=== PATIENT | male | born 1995 | race Caucasian/White ===

== ENCOUNTER 2022-10-19 07:45 | Emergency (ER) | payer OTHER, SELFPAY ==
[2022-10-19 07:48] VITALS: BP 172/96; PULSE 88; RESP 16; TEMP 36.9; O2SAT 99
--- OUTSIDE RECORDS SUMMARY | 2022-10-19 07:56 | XMS_ITS | Patient Health Record ---
Author Name Unknown Organization [employer] [facility] Address [address] [place], [place] [id number] Care Team Providers Care Certified Composites Technician Name Role Phone ELVIN MATA Primary Care Provider [phone] ALLERGIES No Known Allergies RESULTS Component Value Reference Range Notes XR FOOT 3V LT* Reviewed date:04/02/2022 07:21:47 AM Interpretation: Performing Lab: Notes/Report: [facility] RADIOLOGY REASON FOR REFERRAL No Information IMMUNIZATIONS Vaccine Route Administration Date Status Comme nts Covid-19 Moderna Booster Unknown 03/02/2021 Administere d Covid-19 Moderna Dose 1 Unknown 03/31/2020 Administered Covid-19 Moderna Dose 2 Unknown 05/02/2020 Administered Hep B, adolescent or pediatr ic (11-19), 3 dose schedule Unknown 1993 Administered Hep B, adolescent or pediatr ic (11-19), 3 dose schedule Unknown 1993 Administered Hep B, adolescent or pediatr ic (11-19), 3 dose schedule Unknown 03/27/1994 Administered Hib (PRP-T), 4 dose schedule Unknown 1993 Adminis tered Hib (PRP-T), 4 dose schedule Unknown 01/22/1994 Adminis tered Hib (PRP-T), 4 dose schedule Unknown 03/27/1994 Adminis tered Hib (PRP-T), 4 dose schedule Unknown 12/31/1994 Adminis tered Influenza >6 months Unknown 03/21/2021 Administered IPV Unknown 1993 Administered IPV Unknown 01/22/1994 Administered IPV Unknown 03/27/1994 Administered IPV Unknown 11/21/1998 Administered Meningococcal MCV4O (CVX 136) Unknown 11/01/2008 Admini stered Meningococcal MCV4O (CVX 136) Unknown 08/25/2013 Admini stered MMR Unknown 12/31/1994 Administered MMR Unknown 11/21/1998 Administered Rabies, intramuscular injection Unknown 05/21/2015 Admi nistered Rabies, intramuscular injection Unknown 05/24/2015 Admi nistered Rabies, intramuscular injection Unknown 05/28/2015 Admi nistered Rabies, intramuscular injection Unknown 06/04/2015 Admi nistered Td Unknown 09/04/2012 Administered Tdap Unknown 09/10/2005 Administered Tdap Unknown 02/26/2017 Administered Varicella Unknown 10/09/1999 Administered Varicella Unknown 09/18/2006 Administered SOCIAL HISTORY Sex Assigned At : Social History Observation Description Sex Assigned At Unknown PROBLEMS Problem Type ICD Code Onset Dates Problem Status W/U Status Risk SNOMED Code Notes Problem BMI 40.0-44.9, adult (Z68.41) Active confirmed 207006823 Problem Abdominal aortic aneurysm (AAA) without rupture (I71.4) Active confirmed 57802424 Problem Cigar smoker (F17.290) Active confirmed 70773406 Problem Smoker (F17.200) Active confirmed 95504479 VITAL SIGNS Heart Rate 84 /min 06/20/2022 Blood pressure diastolic 90 mmHg 06/20/2022 Weight-kg 131.09 kg 06/20/2022 Height 71 in 06/20/2022 Blood pressure systolic 132 mmHg 06/20/2022 Weight 289 lbs 06/20/2022 BMI 40.3 06/20/2022 Encounters Encounter Location Date Provider Diagnosis [facility] [place] [address] [place], [place] [phone] 10/26/2021 ELVIN MATA [facility] [place] [address] [place] [place] [id number] 06/20/2022 ELVIN MATA Annual physical exam Z00.00 and BMI 40.0-44.9, adult Z68.41 [facility] [place] [address] [place], [place] [phone] 04/12/2022 ELVIN MATA ASSESSMENTS Encounter Date Diagnosis Assessment Notes Treatment Notes Treatment Clinical Notes 06/20/2022 Annual physical exam (ICD-10 - Z00.00) 06/20/2022 BMI 40.0-44.9, adult (ICD-10 - Z68.41) PLAN OF TREATMENT No Information Insurance Providers Payer Name Payer Address Payer Phone Subscriber Number Group Number Insured Name Patient Relationship to Insured Coverage Start Date Coverage End Date [facility] [address] [place] [phone] [id number] Jose David Vazquez Self - patient is the insured MEDICAL (GENERAL) HISTORY Medical History History ICD Code obesity Surgical History Surgery Date(Month/Year) vasectomy
--- OUTSIDE RECORDS SUMMARY | 2022-10-19 07:56 | XMS_ITS | CCD ---
Author Name Unknown Address [address] [place] [id number] Organization Unknown Address [address] [place] [phone] Care Team Providers Care Wallpaper Remover Steam Name Role Phone RANDELL TOWNSEND Attending Physician [phone] MAYA GRIFFIN Er Physician 6 [phone] LAUREN Law Registered Nurse [phone] Vital Signs Vital Sign Value Unit Date/Time Recent/Initial ? BMI (Body Mass Index) 41.84 kg/m^2 02/25/2021 19: 19 Initial VS Weight Measured 300 lbs 02/25/2021 19:19 Ini tial VS Height 71 in 02/25/2021 19:19 Initial VS BSA (Body Surface Area) 2.61 m^2 02/25/2021 1 9:19 Initial VS BP Systolic 154 mmHg 02/25/2021 19:19 Initial VS BP Diastolic 92 mmHg 02/25/2021 19:19 Initia l VS Respiratory Rate 18 bpm 02/25/2021 19:19 In itial VS Heart Rate 92 bpm 02/25/2021 19:19 Initial VS O2 % BldC Oximetry 98 % 02/25/2021 19:19 Initial VS Body Temperature 35.6 degrees 02/25/2021 19:19 In itial VS Allergies Allergy Code Allergy Type Reaction Status No Known Drug Allergies 0 No known drug allergies Active Procedures Unknown or Not Available. History of Immunizations Unknown or Not Available. Problems Unknown or Not Available. Results COMPREHENSIVE METABOLIC PANE L (CMP) - Collect Date/Time: 02/25/2021 19:42 Test Name Code Test Result Test Units Test Ref Rang e GLUCOSE 2345-7 106 mg/dL L=70 H=116 BUN 3094-0 22 mg/dL L=6 H=25 CREATININE 2160-0 1.08 mg/dL L=0.67 H=1.17 SODIUM SERUM 2951-2 139 mmol/L L=136 H=145 POTASSIUM SERUM 2823-3 3.9 mmol/L L=3.4 H=5 .2 CHLORIDE SERUM 2075-0 102 mmol/L L=96 H=110 CARBON DIOXIDE (CO2) 2028-9 30 mmol/L L=22 H=34 ANION GAP 84950-0 6.9 mmol/L CALCIUM SERUM 16007-9 9.3 mg/dL L=8.2 H=10. 2 BILIRUBIN TOTAL 1975-2 0.5 mg/dL L=0.0 H=1 .3 ALK. PHOS. 6768-6 66 U/L L=46 H=116 SGOT (AST) 1920-8 33 U/L L=15 H=37 SGPT (ALT) 1742-6 81 U/L L=12 H=78 TOTAL PROTEIN 2885-2 7.8 gm/dL L=6.0 H=8.0 ALBUMIN 1751-7 4.1 gm/dL L=3.4 H=5.0 AGE 25 years eGFR (non-Afr.Amer.) 92318-5 82 mL/min eGFR (Afr-[place]er) 55405-5 99 mL/min LIPASE* - Collect Date/Time: 02/25/2021 19:42 Test Name Code Test Result Test Units Test Ref Rang e LIPASE 79 U/L L=73 H=393 CBC W/ DIFFERENTIAL* - Colle ct Date/Time: 02/25/2021 19:42 Test Name Code Test Result Test Units Test Ref Rang e WBC 6690-2 7.51 th/cmm L=5.00 H=10.00 NEUT % 61.7 % L=40.0 H=80.0 LYMPH % 30.6 % L=10.0 H=50.0 MONO % 22461-3 5.6 % L=2.0 H=12.0 EOS % 1.5 % L=0.0 H=8.0 BASO % 0.5 % L=0.0 H=3.0 IG % 2514-8 0.1 % L=0.0 H=1.1 NRBC % 90140-8 0.0 % L=0.0 H=0.0 NEUT abs count 751-8 4.6 th/cmm L=1.6 H=8. 4 LYMPH abs count 731-0 2.3 th/cmm L=1.5 H=4 .0 MONO abs count 742-7 0.4 th/cmm L=0.2 H=1. 0 EOS abs count 711-2 0.1 th/cmm L=0.0 H=0.5 BASO abs count 704-7 0.0 th/cmm L=0.0 H=0. 2 IG abs count 33320-2 0.0 th/cmm L=0.0 H=0.1 NRBC abs count 57846-1 0.0 mil/cmm L=0.0 H=0. 0 RBC 789-8 5.13 mil/cmm L=4.30 H=6.20 HEMOGLOBIN 718-7 15.4 gm/dL L=13.0 H=17.0 HEMATOCRIT 4544-3 48 % L=45 H=52 MCV 787-2 93 fL L=82 H=92 MCH 785-6 30.0 pg L=27.0 H=31.0 MCHC 786-4 32.3 % L=32.0 H=36.0 RDW-SD 788-0 44.3 fL L=39.0 H=49.0 PLATELET COUNT 777-3 292 th/cmm L=150 H=45 0 URINALYSIS WITH REFLEX CULT IF POSITIVE* - Collect Date/Time: 02/25/2021 20:22 Test Name Code Test Result Test Units Test Ref Rang e COLLECTION MODE: CLEAN CATCH N/A Color 5778-6 YELLOW N/A yellow Appearance 5767-9 CLEAR N/A clear Glucose urine 97489-8 NEGATIVE N/A negative mg /dl Bilirubin 5770-3 NEGATIVE N/A negative Ketones 2514-8 NEGATIVE N/A negative mg/dl Spec gravity 5811-5 >=1.030 N/A 1.003 - 1.03 0 pH urine 2756-5 6.0 N/A 5.0 - 7.0 Protein 68671-2 NEGATIVE N/A negative mg/dl Urobilinogen 98877-1 0.2 N/A <or= 1 EU/dl Nitrite. 5802-4 NEGATIVE N/A negative Blood 5794-3 NEGATIVE N/A negative Leukocytes. NEGATIVE N/A negative MICROSCOPIC NOT INDICAT N/A Active Medications Unknown or Not Available. Medications Administered During Visit Unknown or Not Available. Encounters Encounter Diagnosis Diagnosis Code Start Date Epigastric pain R1013 02/25/2021 Social History Smoking Status Code Start Date End Date Never smoker [id number] Patient Decision Aids Unknown or Not Available. Discharge Instructions You were admitted to [facility] on 02/25/2021 19:13 with a principal diagnosis of Epigastric pain You had the following tests done:URINALYSIS WITH REFLEX CULT IF POSITIVE*CBC W/ DIFFERENTIAL*COMPREHENSIVE METABOLIC PANEL (CMP)LIPASE* You were discharged from [facility] on 02/25/2021 20:52 Should you have any questions prior to discharge, please contact a member of your healthcare team. If you have left the hospital and have any questions, please contact your primary care physician. Chief Complaint and Reason For Visit Chief Complaint Date of Onset ABD PAIN Function Status Unknown or Not Available. Plan of Care Unknown or Not Available. Referral/Transition of Care Unknown or Not Available.
--- OUTSIDE RECORDS SUMMARY | 2022-10-19 07:56 | XMS_ITS | CCD ---
Author Name Unknown Address [address] [place] [id number] Organization Unknown Address [address] [place] [phone] Care Team Providers Care Dietary Worker Name Role Phone CAPRI MORALES Attending Physician [phone] CAPRI MORALES Er Physician 2 [phone] SHARATH Sullivan Registered Nurse [phone] Vital Signs Vital Sign Value Unit Date/Time Recent/Initial ? BMI (Body Mass Index) 41.84 kg/m^2 03/31/2022 05: 54 Initial VS Weight Measured 300 lbs 03/31/2022 05:54 Ini tial VS Height 71 in 03/31/2022 05:54 Initial VS BSA (Body Surface Area) 2.61 m^2 03/31/2022 0 5:54 Initial VS BP Systolic 148 mmHg 03/31/2022 05:54 Initial VS BP Diastolic 96 mmHg 03/31/2022 05:54 Initia l VS Respiratory Rate 19 bpm 03/31/2022 05:54 In itial VS Heart Rate 87 bpm 03/31/2022 05:54 Initial VS O2 % BldC Oximetry 97 % 03/31/2022 05:54 Initial VS Body Temperature 35.7 degrees 03/31/2022 05:54 In itial VS Allergies Allergy Code Allergy Type Reaction Status No Known Drug Allergies 0 No known drug allergies Active Procedures Unknown or Not Available. History of Immunizations Unknown or Not Available. Problems Unknown or Not Available. Results Unknown or Not Available. Active Medications Unknown or Not Available. Medications Administered During Visit Unknown or Not Available. Encounters Encounter Diagnosis Diagnosis Code Start Date Unspecified sprain of left foot, initial encount er [id number] 03/31/2022 Social History Smoking Status Code Start Date End Date Never smoker [id number] Patient Decision Aids Unknown or Not Available. Discharge Instructions You were admitted to [facility] on 03/31/2022 05:45 with a principal diagnosis of Unspecified sprain of left foot, initial encounter You were discharged from [facility] on 03/31/2022 06:48 Should you have any questions prior to discharge, please contact a member of your healthcare team. If you have left the hospital and have any questions, please contact your primary care physician. Chief Complaint and Reason For Visit Chief Complaint Date of Onset CANT PUT WEIGHT ON LEFT FOOT Function Status Unknown or Not Available. Plan of Care Unknown or Not Available. Referral/Transition of Care Unknown or Not Available.
--- OUTSIDE RECORDS SUMMARY | 2022-10-19 07:56 | XMS_ITS | Continuity of Care Document ---
Author Name Unknown Organization [facility] Address [address] [place] [address] Encounter [facility] Date(s): 02/06/22 - 02/06/22 [facility] [address] [place] [address] Encounter Diagnosis Chest wall pain(Discharge Diagnosis) - 02/06/22 Other chest pain(Final) - Discharge Disposition: Home or Self Care Attending Physician: Hitesh Martníez MD Admitting Physician: Hitesh Martínez MD Allergies, Adverse Reactions, Alerts No Known Medication Allergies Functional Status 02/06/22 Other exposure to Infectious Disease Non e Immunizations Given and Recorded Vaccine Date Status Refusal Reason SARS-CoV-2 (COVID-19) mRNA-1273 vaccine 05/02/20 R ecorded SARS-CoV-2 (COVID-19) mRNA-1273 vaccine 03/31/20 R ecorded Medications No Known Medications Results Laboratory List Name Date Basic Metabolic Panel 02/06/22 CBC w/ Diff 02/06/22 Troponin-I 02/06/22 Automated Diff 02/06/22 Most recent to oldest [Reference Range]: 1 WBC [5.0-10.0 x10^3/mcL] 7.1 x10^3/mcL (02/06/22 6:26 PM) RBC [4.6-6.0 x10^6/mcL] 5.0 x10^6/mcL (02/06/22 6:26 PM) Neutro Auto [40.0-75.0 %] 61.0 % (02/06/22 6:26 PM) Lymph Auto [20.0-50.0 %] 30.4 % (02/06/22 6:26 PM) Ida Auto [2.0-15.0 %] 7.1 % (02/06/22 6: PM) Basophil Auto [0.0-1.0 %] 0.4 % (02/06/22: PM) BUN [7-18 mg/dL] 16 mg/dL (02/06/22: PM) Glucose Level [74-106 mg/dL] 95 mg/dL (02/06/22: PM) Potassium Level [3.5-5.1 mmol/L] 3.7 mmo l/L (02/06/22: PM) MCV [80.0-96.0] 93.0 (02/06/22: PM) MCHC [31.0-35.0 g/dL] 32.7 g/dL (02/06/22: PM) Troponin-I [0.0-76.2 pg/mL] <5.0 pg/mL (02/06/22: PM) Sodium Level [136-145 mmol/L] 138 mmol/L (02/06/22: PM) Hct [41.0-51.0 %] 46.8 % (02/06/22: PM) Calcium Level [8.5-10.1 mg/dL] 9.1 mg/dL (02/06/22: PM) MCH [26.0-32.0 pg] 30.4 pg (02/06/22: PM) Neutro Absolute 4.3 x10^3/mcL *NA* (02/06/22: PM) Hgb [14.0-18.0 g/dL] 15.3 g/dL (02/06/22: PM) Platelets [130-450 x10^3/mcL] 292 x10^3/ mcL (02/06/22: PM) CO2 [21-32 mmol/L] 32 mmol/L (02/06/22: PM) eGFR Non-AA [>=60] 90 (02/06/22: PM) eGFR AA [>=60] 90 (02/06/22: PM) Chloride Level [98-107 mmol/L] 102 mmol/ L (11/15/22 6:26 PM) RDW-CV [11.5-17.0 %] 13.5 % (02/06/22 6: PM) Imm Gran Auto [0.0-0.9 %] 0.3 % (02/06/22: PM) Creatinine Level [0.70-1.30 mg/dL] 1.14 mg/dL (02/06/22 6: PM) Eos, Auto [1.0-6.0 %] 0.8 % *LOW* (02/06/22: PM) Vital Signs Most recent to oldest [Reference Range]: 1 Temperature Temporal Artery [36-38 Deg C ] 36.0 Deg C (02/06/22 6: PM) Peripheral Pulse Rate [60-100 bpm] 77 bp m (02/06/22: PM) Respiratory Rate [12-24 br/min] 20 br/mi n (02/06/22: PM) Blood Pressure [90-140/60-90 mmHg] 141/8 6mmHg *HI* (02/06/22 6:11 PM) Weight Dosing 136.53 kg (02/06/22:18 PM) Weight Estimated 136.53 kg (02/06/22 6:11 PM) Height/Length Dosing 180.000 cm (02/06/22:18 PM) Height/Length Estimated 180.000 cm (02/06/22 6:11 PM) Social History Social History Type Response Tobacco Former tobacco user Tobacco Use:. 1 Sex Male 1quit 6 months ago Hospital Discharge Instructions Patient Education 02/06/2022 18:34:06 Chest Wall Pain, Smpi-oq-Etae Chest Wall Pain Chest wall pain is pain in or around the bones and muscles of your chest. Chest wall pain may be caused by: ??? An injury. ??? Coughing a lot. ??? Using your chest and arm muscles too much. Sometimes, the cause may not be known. This pain may take a few weeks or longer to get better. Follow these instructions at home: Managing pain, stiffness, and swelling If told, put ice on the painful area: ??? Put ice in a plastic bag. ??? Place a towel between your skin and the bag. ??? Leave the ice on for 20 minutes, 2???3 times a day. Activity ??? Rest as told by your doctor. ??? Avoid doing things that cause pain. This includes lifting heavy items. ??? Ask your doctor what activities are safe for you. General instructions ??? Take nhet-dee-yzphslb and prescription medicines only as told by your doctor. ??? Do not use any products that contain nicotine or tobacco, such as cigarettes, e-cigarettes, andchewing tobacco. If you need help quitting, ask your doctor. ??? Keep all follow-up visits as told by your doctor. This is important. Contact a doctor if: ??? You have a fever. ??? Your chest pain gets worse. ??? You have new symptoms. Get help right away if: ??? You feel sick to your stomach (nauseous) or you throw up (vomit). ??? You feel sweaty or light-headed. ??? You have a cough with mucus from your lungs (sputum) or you cough up blood. ??? You are short of breath. These symptoms may be an emergency. Do not wait to see if the symptoms will go away. Get medical help right away. Call your local emergency services (911 in the [place] Do not drive yourself to the hospital. Summary ??? Chest wall pain is pain in or around the bones and muscles of your chest. ??? It may be treated with ice, rest, and medicines. Your condition may also get better if you avoid doing things that cause pain. ??? Contact a doctor if you have a fever, chest pain that gets worse, or new symptoms. ??? Get help right away if you feel light-headed or you get short of breath. These symptoms may be an emergency. This information is not intended to replace advice given to you by your health care provider. Make sure you discuss any questions you have with your health care provider. Document Revised: 06/13/2021 Document Reviewed: 05/26/2021 [employer] Patient Education ?? 2021 [employer] 02/06/2022 18:33:59 Nonspecific Chest Pain, Adult, Hjbx-gw-Cgjl Nonspecific Chest Pain Chest pain can be caused by many different conditions. Some causes of chest pain can be life-threatening. These will require treatment right away. Serious causes of chest pain include: ??? Heart attack. ??? A tear in the body's main blood vessel. ??? Redness and swelling (inflammation) around your heart. ??? Blood clot in your lungs. Other causes of chest pain may not be so serious. These include: ??? Heartburn. ??? Anxiety or stress. ??? Damage to bones or muscles in your chest. ??? Lung infections. Chest pain can feel like: ??? Pain or discomfort in your chest. ??? Crushing, pressure, aching, or squeezing pain. ??? Burning or tingling. ??? Dull or sharp pain that is worse when you move, cough, or take a deep breath. ??? Pain or discomfort that is also felt in your back, neck, jaw, shoulder, or arm, or pain that spreads to any of these areas. It is hard to know whether your pain is caused by something that is serious or something that is not so serious. So it is important to see your doctor right away if you have chest pain. Follow these instructions at home: Medicines ??? Take dbwo-gro-ouhklvt and prescription medicines only as told by your doctor. ??? If you were prescribed an antibiotic medicine, take it as told by your doctor. Do not stop taking the antibiotic even if you start to feel better. Lifestyle ??? Rest as told by your doctor. ??? Do not use any products that contain nicotine or tobacco, such as cigarettes, e-cigarettes, andchewing tobacco. If you need help quitting, ask your doctor. ??? Do not drink alcohol. ??? Make lifestyle changes as told by your doctor. These may include: ??? Getting regular exercise. Ask your doctor what activities are safe for you. ??? Eating a heart-healthy diet. A diet and electronic health records specialist (dietitian) can help you to learn healthy eating options. ??? Staying at a healthy weight. ??? Treating diabetes or high blood pressure, if needed. ??? Lowering your stress. Activities such as yoga and relaxation techniques can help. General instructions ??? Pay attention to any changes in your symptoms. Tell your doctor about them or any new symptoms. ??? Avoid any activities that cause chest pain. ??? Keep all follow-up visits as told by your doctor. This is important. You may need more testing if your chest pain does not go away. Contact a doctor if: ??? Your chest pain does not go away. ??? You feel depressed. ??? You have a fever. Get help right away if: ??? Your chest pain is worse. ??? You have a cough that gets worse, or you cough up blood. ??? You have very bad (severe) pain in your belly (abdomen). ??? You pass out (faint). ??? You have either of these for no clear reason: ??? Sudden chest discomfort. ??? Sudden discomfort in your arms, back, neck, or jaw. ??? You have shortness of breath at any time. ??? You suddenly start to sweat, or your skin gets clammy. ??? You feel sick to your stomach (nauseous). ??? You throw up (vomit). ??? You suddenly feel lightheaded or dizzy. ??? You feel very weak or tired. ??? Your heart starts to beat fast, or it feels like it is skipping beats. These symptoms may be an emergency. Do not wait to see if the symptoms will go away. Get medical help right away. Call your local emergency services (911 in the [place] Do not drive yourself to the hospital. Summary ??? Chest pain can be caused by many different conditions. The cause may be serious and need treatment right away. If you have chest pain, see your doctor right away. ??? Follow your doctor's instructions for taking medicines and making lifestyle changes. ??? Keep all follow-up visits as told by your doctor. This includes visits for any further testing if your chest pain does not go away. ??? Be sure to know the signs that show that your condition has become worse. Get help right away if you have these symptoms. This information is not intended to replace advice given to you by your health care provider. Make sure you discuss any questions you have with your health care provider. Document Revised: 05/25/2021 Document Reviewed: 05/25/2021 [employer] Patient Education ?? 2021 [employer] Follow Up Care 02/06/2022 18:11:36 With:Follow up with primary care provider Address: When: only if needed Physician Emergency department Note * Benji Watt MD: PERFORM Event Display: ED Note Physician Authored Date: [id number] ELIJAH SUMMERS :1995 Age:26 years Sex:Male Visit Date:02/06/2022 Basic Information Time Seen: Benji Watt MD / 02/06/2022 18:12 Chief Complaint Pt states intermittent mid-chest stabbing pain that only last a few seconds but increasing in frequency over the past day. Pt denies n/v, diaphoresis, or SOB. History Of Present Illness: Pleasant??26-year-old male presents because for the last couple days he has had twinges of mid chest pain.?? He states that intermittently randomly he will have for??a couple seconds of sharp pain inthe middle of the sternum.?? It does not radiate is not worse with exertion is not accompanied by shortness of breath or diaphoresis or nausea. ??Does not go through to his back.?? Eating does not make it worse. ??He worked out at the gym this morning and it did not bring it on. ??No recent leg swelling.?? He did start working out at the gym recently to try to lose weight.?? No fever chills or other??illnesses.?? No cardiac history, no??first degree??relatives with heart disease.?? 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 ??Has worked today and??exertion at work does not make it worse. Review of Systems: Constitutional:??no??fever,??no??chills,??no??sweats,??no??weakness Skin:??no??Jaundice,??no??rash,??no??lesions,??no??petechiae ENMT:??no??ear pain,??no??sore throat,??no??congestion,??no??hoarseness Respiratory:??no??shortness of breath,??no??cough,??no??orthopnea,??no??wheezing Cardiovascular:??See HPI??no??palpitations,??no??edema Gastrointestinal:??no??nausea,??no??vomiting,??no??diarrhea, no abdominal pain Genitourinary:??No complaints of voiced, Musculoskeletal:??no??back pain,??no??trauma, recently he has had some??neck achiness but he has been??leaning forward studying. Neurologic:??no??headache,??no??dizziness,??no??numbness,??no??weakness ?? Physical Exam Vitals & Measurements T:??36.0?C ??(Temporal Artery)?? HR:??77??(Peripheral)?? RR:??20?? BP:??141/86?? SpO2:??98%?? HT:??180.000??cm?? WT:??136.53??kg??(Estimated)?? O2 Therapy:??Room air?? General:??alert,??no acute distress. Skin:??warm,??dry. Head:??no??trauma,??normocephalic. Neck:??trachea??midline, Eye:??normal??conjunctiva, sclera??clear. Cardiovascular:??regular??rate and rhythm,??normal??peripheral perfusion. Respiratory: lungs??CTA, respirations??non-labored. Chest wall:??no??deformity.?? Palpation does not reproduce the symptoms. Gastrointestinal:??soft,??non distended,??no??tenderness,??no??guarding. Extremities:??no??deformity,??no??trauma.?? No signs of DVT. Neurological:??oriented??x 4, LOC??appropriate for age, , speech??normal. Psychiatric:??cooperative, affect??appropriate for age,?? Medical Decision Making: Differential diagnosis includes??chest wall pain, costochondritis,??do not think it is acute coronary syndrome or dissection or PE??or esophageal tear.?? Patient asymptomatic here. ??Symptoms have been going on since yesterday.?? EKG is benign chest x-ray is benign.?? Waiting??troponin. ?? Troponin negative after??a day or 2 of symptoms.?? Patient recalls that when he bends forward and comes back up sometimes he feels a little click??that reproduce some of the discomfort. ??Symptomsappear quite musculoskeletal. ??Discharged in stable and asymptomatic condition with recommendationto return if he has more symptoms resolving??angina. Procedure No Qualifying Data Assessment/Plan 1.??Chest wall pain??R07.89 Orders: Discharge Patient, 02/06/22 19:33:00 EST, Home Independently, Constant Indicator Patient Education Chest Wall Pain, Wywf-su-Iowg Nonspecific Chest Pain, Adult, Vhhp-nb-Pjjc Follow Up With When Contact Information Follow up with primary care provider Only if needed Additional Instructions: Problem List/Past Medical History Ongoing No qualifying data Historical No qualifying data Allergies No Known Medication Allergies Social History Alcohol Current, 1-2 times per week Electronic Cigarette/Vaping Electronic Cigarette Use: Never. Substance Use Never Tobacco Former tobacco user Tobacco Use:.- Comments: quit 6 months ago Diagnostic Results ECG EKG shows normal sinus rhythm with no ischemic changes. Diagnostic Study Interpretation: Chest x-ray as interpreted by me is unremarkable. Lab Results CBC and Differential?? LATEST RESULTS?? WBC?? 02/06/22 18:26?? 7.1?? RBC?? 02/06/22 18:26?? 5.0?? Hgb?? 02/06/22 18:26?? 15.3?? Hct?? 02/06/22 18:26?? 46.8?? MCV?? 02/06/22 18:26?? 93.0?? MCH?? 02/06/22 18:26?? 30.4?? MCHC?? 02/06/22 18:26?? 32.7?? RDW-CV?? 02/06/22 18:26?? 13.5?? Platelets?? 02/06/22 18:26?? 292?? Neutro Auto?? 02/06/22 18:26?? 61.0?? Lymph Auto?? 02/06/22 18:26?? 30.4?? Ida Auto?? 02/06/22 18:26?? 7.1?? Eos, Auto?? 02/06/22 18:26?? 0.8 ??Low?? Basophil Auto?? 02/06/22 18:26?? 0.4?? Imm Gran Auto?? 02/06/22 18:26?? 0.3?? Neutro Absolute?? 02/06/22 18:26?? 4.3? Routine Chemistry?? LATEST RESULTS?? Sodium Level?? 02/06/22 18:26?? 138?? Potassium Level?? 02/06/22 18:26?? 3.7?? Chloride Level?? 02/06/22 18:26?? 102?? CO2?? 02/06/22 18:26?? 32?? BUN?? 02/06/22 18:26?? 16?? Glucose Level?? 02/06/22 18:26?? 95?? Creatinine Level?? 02/06/22 18:26?? 1.14?? eGFR AA?? 02/06/22 18:26?? 90?? eGFR Non-AA?? 02/06/22 18:26?? 90?? Calcium Level?? 02/06/22 18:26?? 9.1? Cardiac Isoenzymes?? LATEST RESULTS?? Troponin-I?? 02/06/22 18:26?? <5.0? Electronically Signed on 02/06/22 07:34 PM Benji Watt MD Emergency department Discharge instructions * Benji Watt MD: PERFORM Event Display: ED Discharge Information Authored Date: [id number] ELIJAH SUMMERS :1995 Age:26 years Sex:Male Visit Date:02/06/2022 Discharge Instructions We would like to thank you for allowing us to assist you with your healthcare needs. The following includes patient education materials and information regarding your injury/illness. Diagnosis from Today's Visit Chest wall pain Discharge Vitals Temperature??(Temporal Artery) 96.8 ??F (36.0 ??C) Heart Rate??(Peripheral) 77 Respiratory Rate?? 20 Blood Pressure?? 141/86?? Height?? 70.87 in (180.000 cm) Weight??(Estimated) 301.05 lb (136.53 kg) Allergies No Known Medication Allergies What to Do Next Instructions from Your Care Team At this time there is no signs of acute cardiac problem.?? Follow-up as needed if any worsening symptoms. ??The symptoms appear to have musculoskeletal. You Need to Schedule the Following Appointments Follow Up with??Follow up with primary care provider When:??Only if needed You were treated today on an emergency basis; it may be mujica to contact your primary care provider to notify them of your visit today. You may have been referred to your regular doctor or a specialist, please follow up as instructed. If your condition worsens or you can't get in to see the doctor, contact the Emergency Department. Education Materials Chest Wall Pain Chest wall pain is pain in or around the bones and muscles of your chest. Chest wall pain may be caused by: ? An injury. ? Coughing a lot. ? Using your chest and arm muscles too much. Sometimes, the cause may not be known. This pain may take a few weeks or longer to get better. Follow these instructions at home: Managing pain, stiffness, and swelling If told, put ice on the painful area: ? Put ice in a plastic bag. ? Place a towel between your skin and the bag. ? Leave the ice on for 20 minutes, 2???3 times a day. Activity ? Rest as told by your doctor. ? Avoid doing things that cause pain. This includes lifting heavy items. ? Ask your doctor what activities are safe for you. General instructions ? Take olbh-ppu-rluxhwh and prescription medicines only as told by your doctor. ? Do not use any products that contain nicotine or tobacco, such as cigarettes, e- cigarettes, and chewing tobacco. If you need help quitting, ask your doctor. ? Keep all follow-up visits as told by your doctor. This is important. Contact a doctor if: ? You have a fever. ? Your chest pain gets worse. ? You have new symptoms. Get help right away if: ? You feel sick to your stomach (nauseous) or you throw up (vomit). ? You feel sweaty or light-headed. ? You have a cough with mucus from your lungs (sputum) or you cough up blood. ? You are short of breath. These symptoms may be an emergency. Do not wait to see if the symptoms will go away. Get medical help right away. Call your local emergency services (911 in the [place] Do not drive yourself to the hospital. Summary ? Chest wall pain is pain in or around the bones and muscles of your chest. ? It may be treated with ice, rest, and medicines. Your condition may also get better if you avoid doing things that cause pain. ? Contact a doctor if you have a fever, chest pain that gets worse, or new symptoms. ? Get help right away if you feel light-headed or you get short of breath. These symptoms may be an emergency. This information is not intended to replace advice given to you by your health care provider. Make sure you discuss any questions you have with your health care provider. Document Revised: 06/13/2021 Document Reviewed: 05/26/2021 [employer] Patient Education ?? 2021 [employer] Nonspecific Chest Pain Chest pain can be caused by many different conditions. Some causes of chest pain can be life-threatening. These will require treatment right away. Serious causes of chest pain include: ? Heart attack. ? A tear in the body's main blood vessel. ? Redness and swelling (inflammation) around your heart. ? Blood clot in your lungs. Other causes of chest pain may not be so serious. These include: ? Heartburn. ? Anxiety or stress. ? Damage to bones or muscles in your chest. ? Lung infections. Chest pain can feel like: ? Pain or discomfort in your chest. ? Crushing, pressure, aching, or squeezing pain. ? Burning or tingling. ? Dull or sharp pain that is worse when you move, cough, or take a deep breath. ? Pain or discomfort that is also felt in your back, neck, jaw, shoulder, or arm, or pain that spreads to any of these areas. It is hard to know whether your pain is caused by something that is serious or something that is not so serious. So it is important to see your doctor right away if you have chest pain. Follow these instructions at home: Medicines ? Take aemr-imp-kzvejbf and prescription medicines only as told by your doctor. ? If you were prescribed an antibiotic medicine, take it as told by your doctor. Do not stop taking the antibiotic even if you start to feel better. Lifestyle ? Rest as told by your doctor. ? Do not use any products that contain nicotine or tobacco, such as cigarettes, e- cigarettes, and chewing tobacco. If you need help quitting, ask your doctor. ? Do not drink alcohol. ? Make lifestyle changes as told by your doctor. These may include: ? Getting regular exercise. Ask your doctor what activities are safe for you. ? Eating a heart-healthy diet. A diet and electronic health records specialist (dietitian) can help you to learn healthy eating options. ? Staying at a healthy weight. ? Treating diabetes or high blood pressure, if needed. ? Lowering your stress. Activities such as yoga and relaxation techniques can help. General instructions ? Pay attention to any changes in your symptoms. Tell your doctor about them or any new symptoms. ? Avoid any activities that cause chest pain. ? Keep all follow-up visits as told by your doctor. This is important. You may need more testing if your chest pain does not go away. Contact a doctor if: ? Your chest pain does not go away. ? You feel depressed. ? You have a fever. Get help right away if: ? Your chest pain is worse. ? You have a cough that gets worse, or you cough up blood. ? You have very bad (severe) pain in your belly (abdomen). ? You pass out (faint). ? You have either of these for no clear reason: ? Sudden chest discomfort. ? Sudden discomfort in your arms, back, neck, or jaw. ? You have shortness of breath at any time. ? You suddenly start to sweat, or your skin gets clammy. ? You feel sick to your stomach (nauseous). ? You throw up (vomit). ? You suddenly feel lightheaded or dizzy. ? You feel very weak or tired. ? Your heart starts to beat fast, or it feels like it is skipping beats. These symptoms may be an emergency. Do not wait to see if the symptoms will go away. Get medical help right away. Call your local emergency services (911 in the [place] Do not drive yourself to the hospital. Summary ? Chest pain can be caused by many different conditions. The cause may be serious and need treatment right away. If you have chest pain, see your doctor right away. ? Follow your doctor's instructions for taking medicines and making lifestyle changes. ? Keep all follow-up visits as told by your doctor. This includes visits for any further testing if your chest pain does not go away. ? Be sure to know the signs that show that your condition has become worse. Get help right away if you have these symptoms. This information is not intended to replace advice given to you by your health care provider. Make sure you discuss any questions you have with your health care provider. Document Revised: 05/25/2021 Document Reviewed: 05/25/2021 [employer] Patient Education ?? 2021 [employer] Tests Performed Lab Test Name Test Result Date/Time WBC 7.1 x10^3/mcL 02/06/2022 18:26 EST RBC 5.0 x10^6/mcL 02/06/2022 18:26 EST Hgb 15.3 g/dL 02/06/2022 18:26 EST Hct 46.8 % 02/06/2022 18:26 EST MCV 93.0 02/06/2022 18:26 EST MCH 30.4 pg 02/06/2022 18:26 EST MCHC 32.7 g/dL 02/06/2022 18:26 EST RDW-CV 13.5 % 02/06/2022 18:26 EST Platelets 292 x10^3/mcL 02/06/2022 18:26 EST Neutro Auto 61.0 % 02/06/2022 18:26 EST Lymph Auto 30.4 % 02/06/2022 18:26 EST Ida Auto 7.1 % 02/06/2022 18:26 EST Eos, Auto 0.8 % 02/06/2022 18:26 EST Basophil Auto 0.4 % 02/06/2022 18:26 EST Imm Gran Auto 0.3 % 02/06/2022 18:26 EST Neutro Absolute 4.3 x10^3/mcL 02/06/2022 18:26 EST Sodium Level 138 mmol/L 02/06/2022 18:26 EST Potassium Level 3.7 mmol/L 02/06/2022 18:26 EST Chloride Level 102 mmol/L 02/06/2022 18:26 EST CO2 32 mmol/L 02/06/2022 18:26 EST BUN 16 mg/dL 02/06/2022 18:26 EST Glucose Level 95 mg/dL 02/06/2022 18:26 EST Creatinine Level 1.14 mg/dL 02/06/2022 18:26 EST eGFR AA 90 02/06/2022 18:26 EST eGFR Non-AA 90 02/06/2022 18:26 EST Calcium Level 9.1 mg/dL 02/06/2022 18:26 EST Troponin-I <5.0 pg/mL 02/06/2022 18:26 EST Patient/Bike Technician Signature Patient Name:ELIJAH SUMMERS I have received this information and my questions have been answered. Patient/Bike Technician Name: Patient/Bike Technician Signature: Relationship to Patient: Witness Name/Signature: Date: Electronically Signed on: 02/06/2022 19:34 ESTSigned by:MRB Emergency department Note * Celena Sullivan: PERFORM Event Display: ED Notes Authored Date: [id number]
--- OUTSIDE RECORDS SUMMARY | 2022-10-19 07:56 | XMS_ITS | CCD ---
Author Name Unknown Address [address] [place] [address] [id number] Organization Unknown Address [address] [place] [address] [phone] Care Team Providers Care Raw Juice Weigher Name Role Phone ZARA IRENE Attending Physician [phone] Vital Signs Unknown or Not Available. Allergies Allergy Code Allergy Type Reaction Status No Known Drug Allergies 0 No known drug allergies Active Procedures Unknown or Not Available. History of Immunizations Unknown or Not Available. Problems Unknown or Not Available. Results Unknown or Not Available. Active Medications Unknown or Not Available. Medications Administered During Visit Unknown or Not Available. Encounters Encounter Diagnosis Diagnosis Code Start Date Abdominal aortic aneurysm, without rupture I714 03/13/2021 Social History Smoking Status Code Start Date End Date Never smoker [id number] Patient Decision Aids Unknown or Not Available. Discharge Instructions You were admitted to [facility] on 03/13/2021 09:28 with a principal diagnosis of Abdominal aortic aneurysm, without rupture You were discharged from [facility] on 03/13/2021 09:29 Should you have any questions prior to discharge, please contact a member of your healthcare team. If you have left the hospital and have any questions, please contact your primary care physician. Chief Complaint and Reason For Visit Chief Complaint Date of Onset FAMILY HX AORTIC DISSECTION FAMILY HX AORTIC ANEURYSM SMOKER Function Status Unknown or Not Available. Plan of Care Unknown or Not Available. Referral/Transition of Care Unknown or Not Available.
--- OUTSIDE RECORDS SUMMARY | 2022-10-19 07:57 | XMS_ITS | CCD ---
Author Name Unknown Address [address] [place] [address] [phone] Organization Unknown Address [address] [place] [address] [phone] Care Team Providers Care Sewing Pattern Layout Technician Name Role Phone KARLI TRAN MD Attending Physician [phone] KARLI TRAN MD Er Physician [phone] Vital Signs Unknown or Not Available. Allergies Unknown or Not Available. Procedures Unknown or Not Available. History of Immunizations Unknown or Not Available. Problems Unknown or Not Available. Results COMPREHENSIVE METABOLIC PANE L (CMP) - Collect Date/Time: 11/21/2020 10:52 Test Name Code Test Result Test Units Test Ref Rang e GLUCOSE 2345-7 105 mg/dL L=70 H=116 BUN 3094-0 13 mg/dL L=6 H=25 CREATININE 2160-0 0.96 mg/dL L=0.67 H=1.17 SODIUM SERUM 2951-2 143 mmol/L L=136 H=145 POTASSIUM SERUM 2823-3 4.3 mmol/L L=3.4 H=5 .2 CHLORIDE SERUM 2075-0 105 mmol/L L=96 H=110 CARBON DIOXIDE (CO2) 2028-9 29 mmol/L L=22 H=34 ANION GAP 03112-5 9.0 mmol/L CALCIUM SERUM 67411-2 9.2 mg/dL L=8.2 H=10. 2 BILIRUBIN TOTAL 1975-2 0.3 mg/dL L=0.0 H=1 .3 ALK. PHOS. 6768-6 66 U/L L=46 H=116 SGOT (AST) 1920-8 58 U/L L=15 H=37 SGPT (ALT) 1742-6 116 U/L L=12 H=78 TOTAL PROTEIN 2885-2 8.0 gm/dL L=6.0 H=8.0 ALBUMIN 1751-7 4.1 gm/dL L=3.4 H=5.0 AGE 25 years eGFR (non-Afr.Amer.) 28115-4 94 mL/min eGFR (Afr-Danish) 99601-4 114 mL/min CBC W/ DIFFERENTIAL - [facility] t Date/Time: 11/21/2020 10:52 Test Name Code Test Result Test Units Test Ref Rang e WBC 6690-2 5.86 th/cmm L=5.00 H=10.00 NEUT % 66.0 % L=40.0 H=80.0 LYMPH % 24.7 % L=10.0 H=50.0 MONO % 44324-9 6.7 % L=2.0 H=12.0 EOS % 1.4 % L=0.0 H=8.0 BASO % 0.7 % L=0.0 H=3.0 IG % 2514-8 0.5 % L=0.0 H=1.1 NRBC % 88908-2 0.0 % L=0.0 H=0.0 NEUT abs count 751-8 3.9 th/cmm L=1.6 H=8. 4 LYMPH abs count 731-0 1.5 th/cmm L=1.5 H=4 .0 MONO abs count 742-7 0.4 th/cmm L=0.2 H=1. 0 EOS abs count 711-2 0.1 th/cmm L=0.0 H=0.5 BASO abs count 704-7 0.0 th/cmm L=0.0 H=0. 2 IG abs count 49812-8 0.0 th/cmm L=0.0 H=0.1 NRBC abs count 22428-9 0.0 mil/cmm L=0.0 H=0. 0 RBC 789-8 5.42 mil/cmm L=4.30 H=6.20 HEMOGLOBIN 718-7 16.0 gm/dL L=13.0 H=17.0 HEMATOCRIT 4544-3 50 % L=45 H=52 MCV 787-2 92 fL L=82 H=92 MCH 785-6 29.5 pg L=27.0 H=31.0 MCHC 786-4 32.0 % L=32.0 H=36.0 RDW-SD 788-0 46.5 fL L=39.0 H=49.0 PLATELET COUNT 777-3 289 th/cmm L=150 H=45 0 Active Medications Unknown or Not Available. Medications Administered During Visit Unknown or Not Available. Encounters Encounter Diagnosis Diagnosis Code Start Date Dizziness and giddiness [id number] 11/22/19 21 Social History Smoking Status Code Start Date End Date Never smoker [id number] Patient Decision Aids Unknown or Not Available. Discharge Instructions You were admitted to [facility] on 11/21/2020 09:41 with a principal diagnosis of Dizziness and giddiness You had the following tests done:CBC W/ DIFFERENTIALCOMPREHENSIVE METABOLIC PANEL (CMP) You were discharged from [facility] on 11/21/2020 12:42 Should you have any questions prior to discharge, please contact a member of your healthcare team. If you have left the hospital and have any questions, please contact your primary care physician. Chief Complaint and Reason For Visit Chief Complaint Date of Onset DIZZINESS/LIGHT HEADED/VISION ISSUE Function Status Unknown or Not Available. Plan of Care Unknown or Not Available. Referral/Transition of Care Unknown or Not Available.
--- NOTE | 2022-10-19 08:18 | W.ED.GENAD ---
Discharge Plan Disposition Patient Disposition: Home Discharge Details Clinical Impression: Acute pain of left foot Primary Care Provider: None,None ED Provider: Jey Mc Home Meds and New Rx's Prescriptions: New ibuprofen [IBU] 600 mg tablet 600 mg PO QID PRN (Reason: pain) Qty: 20 0RF Discharge Instructions Instructions: Arthralgia (ED), R.I.C.E. Treatment (ED) Additional Instructions: If you have any new or significant worsening of pain please feel free to return the emergency department for reassessment and reconsideration of imaging. Otherwise take prescribed ibuprofen apply ice and rest over the next 2 to 3 days slowly advancing your activity as tolerated. We have placed a referral to a local camouflage assembler please contact their office by Saturday afternoon or Saturday to ensure they have received the referral and make your appointment. Discharge Data Discharge Date/Time-TO BE ENTERED AT DEPARTURE: 10/19/22 08:47 Medical Decision Making Patient presenting to the emergency department for chief complaint of left foot pain. Patient reports that he has intermittently had this pain for the last 6 to 8 months but yesterday he helped somebody renovate their home and started having significant increase in pain and discomfort. He took some acetaminophen last night which barely helped the pain. Patient denies any injury or trauma and denies all other symptoms. Physical exam shows normal-appearing foot with painful but full range of motion, and tenderness mainly over the third and fourth metatarsals and plantar surface. Given no acute traumatic injury discussed with patient risk versus benefit of imaging but I do not feel would change my management of patient. At this time we agreed to not perform any imaging but will have patient go in postop shoe. Patient placed on referral list to follow-up with camouflage assembler as there is possibility of a stress fracture, arthritis, planter fasciitis, ligamentous/foot strain. Again none of these I feel need imaging which was discussed with patient. Patient placed upon NSAIDs and recommended to apply ice and rest over the next couple days with slowly increasing activity as tolerated. After discussion of diagnosis and plan of care patient has no further needs, questions, or concerns and states clear understanding to return to the emergency department for any worsening symptoms. This documentation was generated using PresentationTubeation system, please disregard any oddities of phrase or misspellings. HPI General Mode of arrival: ambulatory. Date/Time Provider Initiated Documentation: 10/19/22 08:04. Limitations to Documentation: no limitations. Information obtained by: patient and RN notes reviewed. History of Present Illness 27 year old M presents to the emergency department with the chief complaint of Left foot pain, described as moderate and severe, Quality is described as sharp, and is localized to the left and lower extremity. Patient reports no radiation. Patient started experiencing this day(s) (1) and it has been constant. Rest improves symptom(s), Movement worsens symptoms . Patient notes no other symptoms.. Patient did receive the following treatments prior to arrival, other (Acetaminophen) Related Data Home Medications Medication Instructions Recorded Confirmed ibuprofen 600 mg tablet (IBU) 600 mg PO QID PRN pain #20 tabs 10/19/22 Previous Rx's Medication Instructions Recorded ibuprofen 600 mg tablet (IBU) 600 mg PO QID PRN pain #20 tabs 10/19/22 Allergies Allergy/AdvReac Type Severity Reaction Status Date / Time No Known Allergies Allergy Unverified 10/19/22 07:52 General Stated Complaint: Orthopedic AMARJIT: 4 Review of Systems Narrative: 6 systems reviewed and unremarkable except what is marked below. Constitutional Constitutional: Denies fever(s) Musculoskeletal Musculoskeletal: Reports as per HPI, Reports arthralgias, Denies joint swelling, Denies numbness and Denies tingling Integumentary/Breasts Skin/Breast: Denies erythema Neurologic Neurologic: Denies numbness and Denies tingling PFSH All Active Problems (Updated 10/19/22 @ 08:26 by Jey Mc NP) Acute pain of left foot (Acute) Social History Smoking/Tobacco Use Status: Current every day Tobacco Type: smokeless tobacco Smoking risk assessment performed?: Yes Drug use: Never Substance use type: does not use Housing: house Do you feel safe at home: Yes Do you feel safe in your relationship?: Yes Exam Const General: cooperative, no acute distress and not ill appearing Orientation: alert, awake and oriented x3 HENMT Mouth: moist mucous membranes Resp Effort & Inspection: normal respiratory effort, able to speak in complete sentences and no respiratory distress Cardio Rate: regular rate Rhythm: regular rhythm Pulses: posterior tibial pulses present and dorsalis pedis present Skin General skin exam: no rashes or lesions noted Neuro General: patient alert, patient awake, patient oriented x3, moves all extremities and no focal motor deficits Sensory Exam: no sensory deficits noted Extrem General: normal exam except as noted Left lower extremity: foot Details: normal capillary refill, normal to inspection, tenderness Location: of the plantar foot and of the mid foot; not of the base of the 5th metatarsal, toes with normal ROM, no edema, vascular exam Details: dorsalis pedis pulse present, posterior tibial pulse present and normal capillary refill, tendon exam Details: active flexion normal and active extension normal and motor-sensory exam Details: two point discrimination normal and light-touch normal; no abrasions and no ecchymosis Course Vital Signs Vital signs: Vital Signs Temperature 36.9 C 10/19/22 07:48 Pulse 88 10/19/22 07:48 Respiratory Rate 16 10/19/22 07:48 Blood Pressure 172/96 H 10/19/22 07:48 Pulse Oximetry 99 10/19/22 07:48 Temperature 36.9 C 10/19/22 07:48 Temperature Source Skin 10/19/22 07:48 Pulse 88 10/19/22 07:48 Respiratory Rate 16 10/19/22 07:48 Respiratory Effort Normal, Non-Labored 10/19/22 07:52 Blood Pressure 172/96 H 10/19/22 07:48 Blood Pressure Position Sitting 10/19/22 07:48 Pulse Oximetry 99 10/19/22 07:48 Oxygen Delivery Method Room Air 10/19/22 07:48 Oxygen Flow Rate 0 10/19/22 07:48 Pain Level 9 10/19/22 07:48 PAWSS Have you Been Recently Intoxicated or Drunk Within the Last 30 days?: No Have you Ever Experienced Previous Episodes of Alcohol Withdrawal?: No Have you ever Experienced Withdrawal Seizures?: No Have you ever Experienced Delirium Tremens(DT)s?: No Have you ever undergone Alcohol Rehabilitation Treatment (i.e, inpt ot outpatient treatment programs)?: No Have you ever Experienced Blackouts?: No Have you ever Combined Alcohol with other Downers within the last 90 days?: No Have you ever Combined Alcohol with any other Substance of Abuse during the last 90 days?: No Positive Blood Alcohol level on Presentation? [PCS.BAL]: No Evidence of Increased Autonomic Activity (i.e. HR>120, tremor, sweating, agitation, nausea)?: No Result: 0
--- NOTE | 2022-10-19 08:20 | NUR.NOTE ---
Nursing Note: PT needs follow up with podiatry somewhere in [place] for foot pain in 1-2 weeks. Cindy, ED
[2022-10-19] MEDS: Ibuprofen 600 MG TAB PO (08:37)
--- NOTE | 2022-10-19 08:37 | NUR.NOTE ---
Nursing Note: Asked by provider to place patient in post op boot. Placed boot on patient and patient stood up on it to walk. Once he tried to stand on it, he said it didn't do anything and he didn't want it. He stated to do whatever we do with it throw it away or whatever. Patient refused the boot.
== END 2022-10-19 08:47 | disposition home or self-care (01) ==
PROVIDERS: Emergency Provider Nurse Practitioner Family
DX: M79.672 Pain in left foot (principal)
CPT/HCPCS: 99283